=== PATIENT | female | born 1990 | race African-American/Black ===

== ENCOUNTER 2016-06-10 21:04 | Emergency (ER) | payer OTHER ==
--- NOTE | ~2016-06-10 | CR63 ---
[facility] A Service [facility] RADIOLOGY TEXT RESULTS PATIENT: BEBETO ACOSTA LOCATION: SED : 88 UNIT #: [id number] AGE: [address]: Rhianna Shaw APRN SEX: F ORDER DR: [id number] [address] [address] [id number] MR#: [id number] Acc #: [id number] NAME: BEBETO ACOSTA : 1990 SEX: F STUDY DATE/TIME: 06/10/2016 21:01 UNIT: SED ROOM: STUDY DESCRIPTION: CR Chest 2 View Attending Physician: Rhianna Shaw A.P.R.N. Ordering Physician: Tim Archibald Aprn [facility] RE[facility] This report is preliminary unless electronic signature is present. EXAM Chest x-ray. HISTORY Cough and congestion for the past 2 weeks. TECHNIQUE 2 views of the chest were obtained. FINDINGS PA and lateral examination of the chest upright shows a good expansion of the parenchyma with a normal distribution of the pulmonary vascularity. There is no indication of congestion, effusion, infiltrate, tumor, or nodular density. The pleural reflections and diaphragmatic contours are normal. The cardiac silhouette and mediastinal anatomy is within normal limits. IMPRESSION Standard normal chest. Dictated by... Keon Ontiveros M.D. THIS IS AN ELECTRONICALLY VERIFIED REPORT Keon Ontiveros M.D. at 06/10/2016 10:23 PM LEO/grace TD: 06/10/2016 21:35 JOB #: [id number] [facility] A Service [facility] RADIOLOGY TEXT RESULTS PATIENT: BEBETO ACOSTA LOCATION: SED : [birth year] UNIT #: [id number] AGE: [address]: Rhianna Shaw APRN SEX: F ORDER DR: MEDICAL IMAGING REPORT Page 1 of 1
[~2016-06-10 21:04] MED LIST: BACTRIM DS TABL1 TA2 PO; DICLOFENAC PO; FAMOTIDINE PO; FLONASE 0.05% N16 G1; IBUPROFEN800 MG PO; MULTI VITAMIN1 EACH PO; NO MEDICATIONS; PERCOCET PO; PRENATAL1 TA1; PRENATAL1 TA1 PO; PRILOSEC PO; PRILOSEC20 MG PO; REGLAN10 MG PO; VOLTAREN50 MG PO; ZOFRANODT SL; ZYRTEC10 M2; ZYRTEC10 M2 PO
== END 2016-06-10 21:52 | disposition home or self-care (01) ==
LOC: SED 21:04
DX: J06.9 Acute upper respiratory infection, unspecified (principal)
CPT/HCPCS: 71020; 99283